=== PATIENT | female | born 1940 | race Caucasian/White ===

== ENCOUNTER 2017-10-10 14:01 | Outpatient (CLI) | payer MEDICARE, OTHER ==
[~2017-10-10] VITALS: Ht 165.1 cm; Wt 71.2 kg
[2017-10-10] MEDS ORDERED: HYDR25TA4 PO (15:14)
[2017-10-10] MEDS ORDERED: DIPH25CA79 PO (15:14)
[2017-10-10] MEDS ORDERED: LEVO175T5 PO (15:14)
[2017-10-10] MEDS ORDERED: LOSA100T28 PO (15:14)
[2017-10-10] MEDS ORDERED: CITA20TA7 PO (15:14)
[2017-10-10] MEDS ORDERED: OXYC-471 PO (15:14)
[2017-10-10] MEDS ORDERED: CIPR500T4 PO (15:14)
== END 2017-10-10 15:05 | disposition home or self-care (01) ==
LOC: PREOP 14:01
PROVIDERS: ATTEND Orthopaedic Surgery Orthopaedic Trauma
DX: Z01.818 Encounter for other preprocedural examination (principal); Z11.2 Encounter for screening for other bacterial diseases; M48.56XA Collapsed vertebra, not elsewhere classified, lumbar region, initial encounter for fracture
CPT/HCPCS: 87081